=== PATIENT | male | born 1975 | race Two or more races ===

== ENCOUNTER 2024-10-15 11:15 | Inpatient (IN) | payer OTHER ==
[~2024-10-15] VITALS: Ht 182.9 cm; Wt 106.6 kg
[2024-10-15 13:33] VITALS: BP 134/87
[2024-10-19] MEDS ORDERED: LIDOCAINE HCL 1% 10ML VIAL ONE (10:18)
[2024-10-19] MEDS ORDERED: HEMOSTATIC MATRIX 1 KIT KIT TOP ONE (10:18)
[2024-10-19] MEDS ORDERED: POVIDONE-IODINE 118 ML BOTT TOP ONE (10:19)
[2024-10-19] MEDS ORDERED: BUPIVACAINE HCL/MPF 0.5% 30ML VIAL ONE (10:19)
[2024-10-19] MEDS ORDERED: CEFTRIAXONE SODIUM 2,000 MG VIAL ONE (10:19)
[2024-10-19] MEDS ORDERED: METRONIDAZOLE/SODIUM CHLORIDE 500 MG/100 ML PIGGYBACK IV ONE (10:19)
[2024-10-19] MEDS ORDERED: DIBUCAINE 30 GM TUBE ONE (10:19)
[2024-10-19] MEDS ORDERED: RINGERS SOLUTION,LACTATED 1,000 ML IV SCH (16:30)
[2024-10-19] MEDS ORDERED: DEXTROSE 50 % IN WATER 0.5 G/ML VIAL IV PRN (16:30)
[2024-10-19] MEDS ORDERED: ONDANSETRON HCL 2 MG/ML VIAL IV PRN (16:30)
[2024-10-19] MEDS ORDERED: MORPHINE SULFATE 4 MG/ML CARTRIDGE IV PRN (16:30)
[2024-10-19] MEDS ORDERED: ACETAMINOPHEN 500 MG GEL..CAP PO SCH (20:00)
[2024-10-19 20:13] LABS: HEMATOCRIT 45.9 % (39.0-48.0); HEMOGLOBIN 15.3 g/dL (13-16.00); MEAN CELL VOLUME 98.3 fL (80.0-100.00); MEAN CORPUSCULAR HEMOGLOBIN 32.7 pg (27.00-32.0); MEAN CORPUSCULAR HGB CONC 33.3 g/dl (32.0-36.0); PLATELET COUNT 290 K/uL (150-450); RED BLOOD COUNT 4.67 M/uL (4.00-6.00); RED CELL DISTRIBUTION WIDTH 12.8 % (11.5-14.5)
[2024-10-19 20:27] LABS: ALBUMIN 3.4 gm/dL (3.4-5.0); CALCIUM 9.2 mg/dL (8.5-10.1); CREATININE SERUM 1.02 mg/dL (0.70-1.30); GFR 77.95; MAGNESIUM 2.2 mg/dL (1.8-2.4); PHOSPHOROUS 4.1 mg/dL (2.5-4.9); POTASSIUM 4.72 mEq/L (3.5-5.1)
[2024-10-19 20:37] VITALS: BP 135/84; O2SAT 97
[2024-10-19] MEDS ORDERED: FAMOTIDINE/PF 20 MG/2 ML VIAL IV PUSH SCH (21:00)
[2024-10-20 00:52] VITALS: BP 118/71; O2SAT 100
[2024-10-20 08:00] VITALS: BP 137/86; O2SAT 97
[2024-10-20 13:05] LABS: HEMATOCRIT 42.4 % (39.0-48.0); HEMOGLOBIN 14.8 g/dL (13-16.00); MEAN CELL VOLUME 96.7 fL (80.0-100.00); MEAN CORPUSCULAR HEMOGLOBIN 33.8 pg (27.00-32.0); PLATELET COUNT 274 K/uL (150-450); RED BLOOD COUNT 4.39 M/uL (4.00-6.00); RED CELL DISTRIBUTION WIDTH 12.6 % (11.5-14.5)
[2024-10-20 13:40] LABS: ALBUMIN 3.5 gm/dL (3.4-5.0); CALCIUM 9.2 mg/dL (8.5-10.1); CREATININE SERUM 0.97 mg/dL (0.70-1.30); GFR 82.61; MAGNESIUM 2.3 mg/dL (1.8-2.4); PHOSPHOROUS 3.5 mg/dL (2.5-4.9); POTASSIUM 4.7 mEq/L (3.5-5.1)
[2024-10-20] MEDS ORDERED: ENOXAPARIN SODIUM 40 MG/0.4 ML SYRINGE SUBCUTANEO SCH (17:00)
[2024-10-21] MEDS ORDERED: ENOXAPARIN SODIUM 40 MG/0.4 ML SYRINGE SUBCUTANEO SCH (09:00)
== END 2024-10-20 14:28 | disposition home or self-care (01) | DRG 349 ==
LOC: SURG 10-19 07:00 → O/R 10-19 08:07 → SURG 10-19 11:15 → SURH 10-19 14:38
PROVIDERS: ADMIT Surgery; ATTEND Surgery
PROC: 0DBP7ZZ Excision of Rectum, Via Natural or Artificial Opening (ICD-10-PCS; principal; 2024-10-19 07:00)
DX: D12.8 Benign neoplasm of rectum (principal); D37.5 Neoplasm of uncertain behavior of rectum